=== PATIENT | female | born 1995 | race American Indian/Alaskan Native ===

== ENCOUNTER 2017-06-05 11:59 | Outpatient (CLI) | payer MEDICAID ==
[2017-06-05 13:00] VITALS: BP 126/75
--- NOTE | 2017-06-05 13:49 | Ultrasound Report ---
BIOPHYSICAL PROFILE: INDICATION: well being. Nonreactive nonstress test. COMPARISON: None similar. TECHNIQUE: Transabdominal ultrasound with Doppler interrogation. 2 - breathing movements 2 - movements 2 - posture and tone 2 - Qualitative amniotic fluid volume 8 - TOTAL SCORE OF POSSIBLE 8 Heart Rate (bpm) 160 CONCLUSION: Findings, as above.
--- NOTE | 2017-06-05 13:50 | Ultrasound Report ---
OB LIMITED INDICATION: well being. NRNST. COMPARISON: None similar. TECHNIQUE: Transabdominal grayscale ultrasound with Doppler interrogation. Gestation: Garrett Position: Cephalic Amniotic Fluid: WNL (7-24 cm) SANTI = 9.4 cm Heart Rate: 160 BPM CONCLUSION: Findings, as above.
== END 2017-06-05 13:28 | disposition home or self-care (01) ==
LOC: TRG 11:59
PROVIDERS: ATTEND Obstetrics & Gynecology
DX: Z34.93 Encounter for supervision of normal pregnancy, unspecified, third trimester (principal); Z3A.32 32 weeks gestation of pregnancy
CPT/HCPCS: 59025; 76815; 76819

== ENCOUNTER 2017-06-05 17:38 | Inpatient (IN) | payer MEDICAID ==
[2017-06-05 18:22] LABS: Basophils % (Auto) 0.5 % (0.0-1.8); Eosinophils % (Auto) 0.9 % (0.0-4.3); Hemoglobin 12.9 gm/dl (10.1-14.3); Mean Corpuscular HGB Conc 33 % (30-34); Mean Corpuscular Hemoglobin 27 pg (28-32); Mean Corpuscular Volume 82 fl (79-97); Platelet Count 233 K/mm3 (140-440); Red Blood Count 4.79 M/mm3 (3.65-5.03); Red Cell Distribution Width 14.7 % (13.2-15.2); White Blood Count 9.9 K/mm3 (4.5-11.0)
[2017-06-05] MEDS ORDERED: LACTATED RINGERS 1,000 ML IV SCH (19:00)
[2017-06-05] MEDS ORDERED: PITOCin/NS 20 UNIT/1000ML DRIP 0 MILLIUNITS/0 ML BAG IV ONE (19:43)
[2017-06-05] MEDS ORDERED: ePHEDrine SULFATE ONE (19:43)
[2017-06-05] MEDS ORDERED: NARCAN 2 MG/2 ML IV PRN (20:09)
[2017-06-05] MEDS ORDERED: ePHEDrine SULFATE IV PRN (20:09)
--- NOTE | 2017-06-05 20:09 | Anesthesia Consultation ---
Anesthesia Consult and Med Hx Date of service: 06/05/17 - Airway Anesthetic Teeth Evaluation: Good ROM Head & Neck: Adequate Mental/Hyoid Distance: Adequate Mallampati Class: Class II Intubation Access Assessment: Good - Pulmonary Exam CTA: Yes - Cardiac Exam Cardiac Exam: No Murmur - Pre-Operative Health Status ASA Pre-Surgery Classification: ASA2 Proposed Anesthetic Plan: Epidural - Pulmonary Hx Asthma: Yes COPD: No Hx Pneumonia: No - Cardiovascular System Hx Hypertension: No - Central Nervous System Hx Seizures: No Hx Psychiatric Problems: No - Endocrine Hx Renal Disease: No Hx End Stage Renal Disease: No Hx Hypothyroidism: No Hx Hyperthyroidism: No - Hematic Hx Anemia: No Hx Sickle Cell Disease: No - Other Systems Hx Alcohol Use: No
[2017-06-05] MEDS ORDERED: fentaNYL-BUPIV 2 MCG/ML-0.125% 200 MCG/100 ML BAG EPIDURAL SCH (21:00)
[2017-06-05] MEDS ORDERED: PITOCin/NS 30 UNIT/500ML 30 UNITS/500 ML BAG IV SCH ×2 (21:35→22:30)
[2017-06-05] MEDS ORDERED: XYLOCAINE 2% INFILTRATI ONE (21:40)
--- NOTE | 2017-06-05 22:04 | History and Physical Report ---
History of Present Illness Date of examination: 06/05/17 Date of admission: 06/05/17 18:10 Chief complaint: contractions History of present illness: 21y/o @ 40+1 weeks presents in active labor with advanced cervical dilation of 6cm. She denied leakage of fluid on presentation. Patient is late presentation of care @ 20 weeks ega. course is complicated by SGA +HSV II status but denies any recent prodrome. GBS negative. 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, herpes, trichomonas Social history: single - Obstetrical History : 3 Para: 2 Hx # Term Pregnancies: 2 Number of Pregnancies: 0 Spontaneous Abortions: 0 Induced : 0 Number of Living Children: 2 Medications and Allergies Allergies Allergy/AdvReac Type Severity Reaction Status Date / Time No Known Allergies Allergy Verified 01/27/15 15:21 Home Medications Medication Instructions Recorded Confirmed Last Taken Type No Known Home Medications [No 06/05/17 06/05/17 Unknown History Reported Home Medications] Active Meds: Active Medications Lactated Ringer's (Lactated Ringers) 1,000 mls @ 125 mls/hr IV DIRECT GEOFF Last Admin: 06/05/17 19:52 Dose: 125 mls/hr Fentanyl/Bupivacaine/Sodium Chlor (Fentanyl-Bupiv 2 Mcg/Ml-0.125%) 200 mcg in 100 mls @ 12 mls/hr EPIDURAL TITR GEOFF PRN Reason: Protocol Review of Systems All systems: negative Genitourinary: pelvic pain, contractions - Vital Signs Vital signs: Vital Signs Pulse BP 93 H 119/68 06/05/17 17:56 06/05/17 17:56 Temp Pulse Resp BP Pulse Ox 97.8 F 104 H 18 105/59 100 06/05/17 19:39 06/05/17 22:01 06/05/17 19:39 06/05/17 21:57 06/05/17 22:01 - Physical Exam Breasts: Positive: deferred Cardiovascular: Regular rate Lungs: Positive: Clear to auscultation Abdomen: Positive: normal appearance Results Result Diagrams: 06/05/17 18:00 Abnormal lab results 06/05/17 Range/Units 18:00 MCH 27 L (28-32) pg [place] % (Auto) 8.2 H (0.0-7.3) % All other labs normal. Assessment and Plan - Patient Problems (1) Active labor at term Current Visit: Yes Status: Acute Plan to address problem: admit to L&D (2) SGA (small for gestational age), , affecting care of mother, antepartum Current Visit: Yes Status: Acute Qualifiers: Fetus number: F
[2017-06-05] MEDS ORDERED: PITOCin/NS 20 UNIT/1000ML DRIP 20,000 MILLIUNITS/1,000 ML BAG IV ONE ×2 (22:27→23:48)
[2017-06-05] MEDS ORDERED: PITOCin/NS 30 UNIT/500ML 30,000 MILLIUNITS/500 ML BAG IV ONE (22:28)
[2017-06-05] MEDS ORDERED: DULCOLAX PR PRN (22:54)
[2017-06-05] MEDS ORDERED: ZOFRAN IV PRN (22:54)
[2017-06-05] MEDS ORDERED: PHENERGAN PO PRN (22:54)
[2017-06-05] MEDS ORDERED: TYLENOL PO PRN (22:54)
[2017-06-05] MEDS ORDERED: PHENERGAN PR PRN (22:54)
[2017-06-05] MEDS ORDERED: TUCKS PAD TP PRN (22:54)
[2017-06-05] MEDS ORDERED: BENADRYL PO PRN (22:54)
[2017-06-05] MEDS ORDERED: LANSINOH TP PRN (22:54)
[2017-06-05] MEDS ORDERED: MILK OF MAGNESIA PO PRN (22:54)
--- NOTE | 2017-06-05 22:54 | Procedure Note ---
OB Delivery Note - Delivery Date of Delivery: 06/05/17 Surgeon: DAVID GARCIA Estimated blood loss: other (150ml) - Vaginal Delivery presentation: vertex Delivery position: OA Intrapartum events: none Delivery augmentation: pitocin Delivery monitor: external FHT Route of delivery: Delivery placenta: spontaneous Delivery cord: 3 umbilical vessels Episiotomy: none Delivery laceration: none Anesthesia: epidural Delivery comments: Patient progressed to C/C/+1 and pushed to deliver a liveborn female with apgars of 8/9 weight 8lbs 5oz. After delivery of the head, the shoulders delivered without difficulty. The was bulb suctioned. The cord clamped and cut and the placed on the patient's abdomen. The placenta delivered spontaneously intact with a 3VC. No laceration were noted. EBL 150ml - A at 1 minute: 8 at 5 minutes: 9 Infant Gender: Female (weight 8lbs 5oz)
[2017-06-05] MEDS ORDERED: SODIUM CHLORIDE FLUSH SYRINGE 10 ML IV PRN (23:00)
[2017-06-06] MEDS: NORCO 5/325 PO PRN ×3 (02:01→20:42)
[2017-06-06] MEDS: MOTRIN PO SCH ×3 (06:03→16:46)
--- NOTE | 2017-06-06 08:13 | Progress Note ---
Assessment and Plan - Patient Problems (1) Active labor at term Current Visit: Yes Status: Acute Plan to address problem: Routine care Discharge home tomorrow (2) SGA (small for gestational age), , affecting care of mother, antepartum Current Visit: Yes Status: Acute Qualifiers: Fetus number: F Subjective - Subjective Date of service: 06/06/17 Interval history: The patient is without any significant complaints today. She reports that her pain is well-controlled. The patient tolerated diet without complication. She reports that her lochia is decreasing. Patient reports: appetite normal, voiding normally, pain well controlled [place]: doing well Objective - Vital Signs Latest vital signs: Vital Signs Temp Pulse Resp BP BP Pulse Ox 06/06/17 04:30 98.6 F 66 18 117/71 06/06/17 01:00 98.6 F 71 16 125/68 06/06/17 00:36 86 97 06/06/17 00:32 90 113/57 06/06/17 00:31 90 98 06/06/17 00:26 85 97 06/06/17 00:21 86 97 06/06/17 00:16 81 118/57 96 06/06/17 00:11 79 98 06/06/17 00:06 86 96 06/06/17 00:02 85 110/57 06/06/17 00:01 93 H 98 06/05/17 23:56 85 98 06/05/17 23:51 81 99 06/05/17 23:47 83 118/58 06/05/17 23:46 86 98 06/05/17 23:41 98 H 98 06/05/17 23:36 89 98 06/05/17 23:32 100 H 137/62 06/05/17 23:31 99 H 98 06/05/17 23:26 97 H 98 06/05/17 23:21 101 H 98 06/05/17 23:17 100 H 132/59 06/05/17 23:16 101 H 97 06/05/17 23:11 104 H 98 06/05/17 23:06 101 H 129/78 98 06/05/17 23:04 54 L 89 06/05/17 23:01 107 H 100 06/05/17 22:56 99 H 100 06/05/17 22:51 97 H 100 06/05/17 22:46 119 H 99 06/05/17 22:27 98 H 100 06/05/17 22:22 99 H 100 06/05/17 22:16 92 H 100 06/05/17 22:11 99 H 100 06/05/17 22:06 102 H 100 06/05/17 22:01 104 H 100 06/05/17 21:57 95 H 105/59 06/05/17 21:56 115 H 100 06/05/17 21:51 99 H 100 06/05/17 21:43 85 100 06/05/17 21:38 83 100 06/05/17 21:33 85 100 06/05/17 21:28 89 100 06/05/17 21:23 82 100 06/05/17 21:18 80 98 06/05/17 21:13 83 100 06/05/17 21:08 95 H 98 06/05/17 21:03 75 99 06/05/17 20:58 77 100 06/05/17 20:54 81 132/66 06/05/17 20:53 72 100 06/05/17 20:52 69 130/63 06/05/17 20:50 77 127/66 06/05/17 20:48 76 121/60 99 06/05/17 20:46 95 H 127/63 06/05/17 20:44 74 121/57 06/05/17 20:43 78 100 06/05/17 20:42 80 115/59 06/05/17 20:39 85 122/77 06/05/17 20:38 83 100 06/05/17 20:36 73 125/60 06/05/17 20:34 92 H 134/61 06/05/17 20:33 90 100 06/05/17 20:32 75 131/61 06/05/17 20:30 94 H 141/65 06/05/17 20:29 82 124/61 06/05/17 20:28 81 100 06/05/17 20:27 91 H 153/65 06/05/17 20:24 85 131/73 06/05/17 20:23 105 H 100 06/05/17 20:22 94 H 121/71 06/05/17 20:18 97 H 100 06/05/17 20:13 95 H 100 06/05/17 20:08 87 99 06/05/17 20:03 94 H 99 06/05/17 19:39 97.8 F 18 06/05/17 19:38 71 119/64 06/05/17 18:29 97.5 F L 75 16 136/73 06/05/17 18:19 75 136/73 06/05/17 18:00 98.2 F 18 06/05/17 17:56 93 H 119/68 Intake and Output 06/05/17 06/06/17 06/06/17 22:59 06:59 14:59 Intake Total 300 Output Total 850 Balance -550 Intake: Intake, Free Water 300 Output: Urine 850 Void 850 Other: Total, Output Amount 850 # Voids Void 1 Weight 105.233 kg Estimated Blood Loss 150 - Exam Uterus: Present: normal, firm - Labs Labs: Abnormal lab results 06/05/17 Range/Units 18:00 MCH 27 L (28-32) pg [place] % (Auto) 8.2 H (0.0-7.3) %
--- NOTE | 2017-06-06 08:15 | Discharge Summary ---
Providers - Providers Date of Admission: 06/05/17 18:10 Date of discharge: 06/07/17 Attending physician: DAVID GARCIA Primary care physician: GINNY SALAS Hospitalization Reason for admission: active labor Delivery: Episiotomy: none Laceration: none complications: none Discharge diagnosis: IUP at term delivered [place] baby: female Hospital course: The patient was admitted in active labor with advanced cervical dilatation. The patient has subsequent normal spontaneous vaginal delivery. course was uneventful. Condition at discharge: Good Disposition: DC-01 TO HOME OR SELFCARE - Discharge Diagnoses (1) Active labor at term Status: Acute (2) SGA (small for gestational age), , affecting care of mother, antepartum Status: Acute Qualifiers: Fetus number: F Plan - Discharge Medications Prescriptions: HYDROcodone/ACETAMINOPHEN [[place] 5-325 Tablet] 1 each PO Q6H PRN #30 tablet PRN Reason: Pain Ibuprofen [Motrin] 800 mg PO Q8HR PRN #60 tablet PRN Reason: Pain - Provider Discharge Summary Activity: no sex for 6 weeks, no heavy lifting 4 weeks, no strenuous exercise Diet: routine Instructions: routine Additional instructions: [] Smoking cessation referral if applicable(refer to patient education folder for contact #) [] Refer to [facility] Center Booklet Call your doctor immediately for: * Fever > 100.5 * Heavy vaginal bleeding ( >1 pad per hour) * Severe persistent headache * Shortness of breath * Reddened, hot, painful area to leg or breast * Followup 4 weeks - Follow up plan
[2017-06-06 10:58] LABS: Hematocrit 36.1 % (30.3-42.9); Hemoglobin 11.5 gm/dl (10.1-14.3)
--- NOTE | 2017-06-06 14:18 | Progress Note ---
Subjective Date of service: 06/06/17 Interval history: 1st day after normal vaginal delivery Patient is in the bed, comfortable. Pain is well under control. Ambulated well. No residual neurological deficit. No anesthesia complications Objective - Constitutional Vitals: Vital Signs - 12hr 06/06/17 06/06/17 06/06/17 04:30 08:40 12:00 Temperature 98.6 F 98.2 F 98.6 F Pulse Rate 66 70 75 Respiratory 18 18 18 Rate Blood Pressure 117/71 102/51 128/70 [Right] - Labs CBC & Chem 7: 06/06/17 10:38 Labs: Abnormal lab results 06/05/17 Range/Units 18:00 MCH 27 L (28-32) pg [place] % (Auto) 8.2 H (0.0-7.3) %
[2017-06-07] MEDS: MOTRIN PO SCH ×2 (00:09→05:18)
[2017-06-07] MEDS ORDERED: BOOSTRIX IM ONE (06:00)
[2017-06-07 13:34] VITALS: BP 120/66
== END 2017-06-07 15:45 | disposition home or self-care (01) | DRG 775 ==
LOC: TRG 17:38 → LD 18:10 → OB 06-06 01:27
PROVIDERS: ADMIT Obstetrics & Gynecology; ATTEND Obstetrics & Gynecology
PROC: 10E0XZZ Delivery of Products of Conception, External Approach (ICD-10-PCS; principal; 2017-06-05)
PROC: 3E0R3BZ Introduction of Anesthetic Agent into Spinal Canal, Percutaneous Approach (ICD-10-PCS; 2017-06-05)
PROC: 00HU33Z Insertion of Infusion Device into Spinal Canal, Percutaneous Approach (ICD-10-PCS; 2017-06-05)
PROC: 3E0234Z Introduction of Serum, Toxoid and Vaccine into Muscle, Percutaneous Approach (ICD-10-PCS; 2017-06-07)
DX: O99.52 Diseases of the respiratory system complicating childbirth (principal); Z3A.40 40 weeks gestation of pregnancy; Z37.0 Single live birth; Z23 Encounter for immunization; J45.909 Unspecified asthma, uncomplicated; O36.5930 Maternal care for other known or suspected poor fetal growth, third trimester, not applicable or unspecified
CPT/HCPCS: 36415; 85014; 85018; 85025; 86592; 86850; 86900; 86901; 90471; 90715; 99211; G0463; J2590; J7120

== ENCOUNTER 2017-08-09 06:22 | Day surgery (SDC) | payer MEDICAID ==
--- NOTE | 2017-08-08 13:34 | History and Physical Report ---
History of Present Illness Date of examination: 08/09/17 Chief complaint: undesired fertility History of present illness: Pt is a 21 year old -[place]aced[place] female who presents for surgical sterilization. She is aware of long-acting reversible contraceptives but she desires to proceed. 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: chlamydia, herpes, trichomonas Family/Genetic History: none Social history: no significant social history - Obstetrical History : 3 Para: 3 Medications and Allergies Allergies Allergy/AdvReac Type Severity Reaction Status Date / Time No Known Allergies Allergy Verified 08/07/17 13:28 Home Medications Medication Instructions Recorded Confirmed Last Taken Type No Known Home Medications [No 08/07/17 08/07/17 Unknown History Reported Home Medications] Review of Systems All systems: negative - Physical Exam Breasts: Positive: deferred Cardiovascular: Regular rate Lungs: Positive: Clear to auscultation Abdomen: Positive: soft (obese ) Extremities: Positive: normal Results All other labs normal. Assessment and Plan A: Undesired Fertility Asthma Obesity P: Proceed with laparoscopic bilateral tubal ligation and other indicated procedures.
[~2017-08-09 06:22] MED LIST: ANCEF/STERILE WATER 2 GM/20 ML 2 GM/20 ML SYRINGE IV NR; LACTATED RINGERS 1,000 ML IV SCH; PEPCID PO NR; VERSED IV NR
== END 2017-08-09 06:23 | disposition home or self-care (01) ==
LOC: OR 06:22
PROVIDERS: ATTEND Obstetrics & Gynecology
DX: Z30.2 Encounter for sterilization (principal); Z53.9 Procedure and treatment not carried out, unspecified reason; J45.909 Unspecified asthma, uncomplicated; E66.9 Obesity, unspecified; Z68.33 Body mass index [BMI] 33.0-33.9, adult

== ENCOUNTER 2017-08-16 06:18 | Day surgery (SDC) | payer MEDICAID ==
--- NOTE | 2017-08-15 23:02 | History and Physical Report ---
History of Present Illness Date of examination: 08/16/17 Chief complaint: Undesired Fertility History of present illness: Pt is a 21 year old -[place] female who presents for surgical sterilization. She is aware of long-acting reversible contraceptives but she desires to proceed. 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, herpes, trichomonas Family/Genetic History: none Social history: no significant social history - Obstetrical History : 3 Para: 3 Medications and Allergies Allergies Allergy/AdvReac Type Severity Reaction Status Date / Time No Known Allergies Allergy Verified 08/07/17 13:28 Home Medications Medication Instructions Recorded Confirmed Last Taken Type No Known Home Medications [No 08/07/17 08/14/17 Unknown History Reported Home Medications] Review of Systems All systems: negative - Physical Exam Breasts: Positive: deferred Cardiovascular: Regular rate Lungs: Positive: Clear to auscultation Abdomen: Positive: soft Extremities: Positive: normal Results All other labs normal. Assessment and Plan A: Undesired Fertility Asthma Obesity P: Proceed with laparoscopic bilateral tubal ligation and other indicated procedures.
[~2017-08-16 06:18] MED LIST changes: -PEPCID PO NR; -VERSED IV NR
[2017-08-16] MEDS ORDERED: ZOFRAN IV PRN (07:58)
[2017-08-16] MEDS ORDERED: SUBLIMAZE IV PRN (07:58)
[2017-08-16] MEDS ORDERED: DILAUDID IV PRN (07:58)
[2017-08-16] MEDS ORDERED: PEPCID IV NR (08:00)
--- NOTE | 2017-08-16 08:00 | Anesthesia Consultation ---
Anesthesia Consult and Med Hx Date of service: 08/16/17 - Airway Anesthetic Teeth Evaluation: Good ROM Head & Neck: Adequate Mental/Hyoid Distance: Adequate Mallampati Class: Class II Intubation Access Assessment: Good - Pulmonary Exam CTA: Yes - Cardiac Exam Cardiac Exam: RRR - Pre-Operative Health Status Proposed Anesthetic Plan: General - Pulmonary Hx Smoking: Yes Hx Asthma: Yes (with ) - Central Nervous System Hx Seizures: No Hx Psychiatric Problems: No - Other Systems Hx Alcohol Use: Yes (occas) Hx Cancer: No Hx Obesity: Yes - Additional Comments Anesthesia Medical History Comments: 8 wks post
--- NOTE | 2017-08-16 08:00 | Anesthesia Day of Surgery ---
Anesthesia Day of Surgery - Day of Surgery Patient Examined: Yes Patient H&P Reviewed: Yes Patient is NPO: Yes
[2017-08-16 08:41] LABS: Hematocrit 39.6 % (30.3-42.9); Hemoglobin 12.8 gm/dl (10.1-14.3); Mean Corpuscular HGB Conc 32 % (30-34); Mean Corpuscular Hemoglobin 27 pg (28-32); Mean Corpuscular Volume 83 fl (79-97); Platelet Count 276 K/mm3 (140-440); Red Cell Distribution Width 15.5 % (13.2-15.2)
[2017-08-16] MEDS ORDERED: PROAIR IH ONE (09:12)
[2017-08-16] MEDS ORDERED: MARCAINE 0.5% 30 ML INFILTRATI ONE (09:13)
[2017-08-16] MEDS ORDERED: SUBLIMAZE ONE (09:18)
[2017-08-16] MEDS ORDERED: DIPRIVAN 10 MG/ML IV ONE (09:18)
[2017-08-16] MEDS ORDERED: ZEMURON IV ONE (09:21)
[2017-08-16] MEDS ORDERED: XYLOCAINE MPF 2% ONE (09:21)
[2017-08-16] MEDS ORDERED: DECADRON ONE (09:43)
[2017-08-16] MEDS ORDERED: MARCAINE 0.5% INFILTRATI ONE (10:18)
[2017-08-16] MEDS ORDERED: NACL 0.9% IR ONE (10:18)
[2017-08-16] MEDS ORDERED: ROBINUL ONE (10:30)
[2017-08-16] MEDS ORDERED: ZOFRAN ONE (10:30)
[2017-08-16] MEDS ORDERED: NEOSTIGMINE ONE (10:30)
[2017-08-16] MEDS ORDERED: DEMEROL ONE (10:56)
[2017-08-16] MEDS ORDERED: DEMEROL IV PRN (10:59)
--- NOTE | 2017-08-16 11:00 | Operative Report ---
Operative Report Operative Report: Date of procedure: August 16, 2017 Preoperative diagnosis: Multiparity desires permanent sterilization Postoperative diagnosis: Same Procedure: Laparoscopic bilateral tubal ligation via Filshie clip method Surgeon: Disha Mcneill M.D. Household Worker: Malinda Cutler M.D. Anesthesia: General endotracheal anesthesia Findings: 1) Small anteverted uterus 2) Normal appearing uterus, ovaries and fallopian tubes Estimated blood loss: 10 mL IV fluid: 700 Urine output: 75 mL clear prior to the procedure Specimens: None Complications: None. Counts correct 2 Disposition: Stable to PACU Indications for procedure: Patient is a 21 year old -[place] female who presents for surgical sterilization. She is aware of long-acting reversible contraceptives but she desires to proceed. Operation in detail: After the risks, benefits, alternatives and complications of the procedure were explained to the patient, she gave informed consent for the procedure. She was subsequently taken to the operating room with her IV noted to be running and placed in the dorsal supine position with sequential compression devices functioning. General endotracheal anesthesia was then induced without difficulty. An exam under anesthesia was then performed yielding a small anteverted uterus. The patient was then placed in placement dorsal lithotomy position and prepped and draped in normal sterile fashion. A timeout was then performed. The bladder was then drained of urine yielding 75 mL of clear urine. An open sided speculum was placed into the vagina for visualization of the cervix. A single-tooth tenaculum was placed on the anterior lip of the cervix for traction. A uterine manipulator was then placed. The single-tooth tenaculum and speculum were then removed from the vagina. The surgeon's gloves were then changed. Attention was then turned to entry into the abdominal cavity. A 5 mm infraumbilical incision was made with an 11 blade. The skin was grasped on either side of the umbilicus and tented up. The Veres needle was placed into the peritoneal cavity, confirmed with a saline drop test. The abdomen was then insufflated with CO2 gas to a pressure of 15 mmHg. A 5 mm Visiport trocar was then placed. An anatomic survey was then performed with findings as indicated above. A second trocar site was created 4 cm superior to the pubic symphysis in the midline measuring 8 mm. An 8 mm trocar was then placed under direct visualization. The patient was placed in Trendelenburg position. The uterus was elevated, and two Filshie clips were then placed across each fallopian tube at the level of the ampullae. At this time, all instruments were removed from the abdominal cavity. The pneumoperitoneum was released. The incisions were then infiltrated with quarter percent Marcaine. The incisions were then reapproximated with 4-0 Vicryl in a subcuticular fashion. They were then each covered with Steri-Strips and a tegaderm. All instruments were then removed from the vagina. At this time the procedure was ended. The patient was placed into the dorsal supine position and extubated without difficulty. She was subsequently taken to the PACU in stable condition. All instrument, needle and lap counts were correct 2.
--- NOTE | 2017-08-16 11:02 | Short Stay Summary ---
Short Stay Documentation Date of service: 08/16/17 - History Social history: no significant social history - Allergies and Medications Current Medications: Allergies No Known Allergies Allergy (Verified 08/07/17 13:28) Home Medications Medication Instructions Recorded Confirmed Last Taken Type RX: No Known Home Medications [No 08/07/17 08/14/17 Unknown History Reported Home Medications] Active Medications Famotidine (Pepcid) 20 mg IV PREOP NR Stop: 08/16/17 12:00 Last Admin: 08/16/17 08:42 Dose: 20 mg Fentanyl (Sublimaze) 50 mcg IV Q5MIN PRN PRN Reason: Pain , Severe (7-10) Stop: 08/16/17 13:00 Hydromorphone HCl (Dilaudid) 0.25 mg IV Q10MIN PRN PRN Reason: Pain, Moderate (4-6) Stop: 08/16/17 13:00 Cefazolin Sodium (Ancef/Sterile Water 2 Gm/20 Ml) 2 gm in 20 mls @ 80 mls/hr IV PREOP NR PRN Reason: Protocol Stop: 08/16/17 23:59 Lactated Ringer's (Lactated Ringers) 1,000 mls @ 100 mls/hr IV DIRECT GEOFF Last Admin: 08/16/17 08:42 Dose: 100 mls/hr Meperidine HCl (Demerol) 25 mg IV ONCE PRN PRN Reason: Shivering - Physical exam Breasts: deferred - Brief post op/procedure progress note Date of procedure: 08/16/17 Pre-op diagnosis: Undesired Fertility Post-op diagnosis: same Procedure: Laparoscopic bilateral tubal ligation and other indicated procedures Anesthesia: GETA Findings: 1) Small anteverted uterus 2) Normal appearing uterus, ovaries and fallopian tubes Surgeon: GINNY SALAS Health Economist: DAVID GARCIA Estimated blood loss: minimal Pathology: none Condition: stable - Hospital course Hospital course: Pt tolerated laparoscopic bilateral tubal ligation well. She was observed in the PACU until she met discharge criteria. She will follow up in 2 weeks in the office for an incision check. - Discharge Diagnoses (1) Encounter for sterilization Status: Acute (2) Obesity Status: Acute Qualifiers: Body mass index: BMI 33.0-33.9 Short Stay Discharge Plan Activity: other (Nothing in vagina, no baths for 4 weeks) Weight Bearing Status: Full Weight Bearing Diet: regular Wound: keep clean and dry, remove dressing (on day 2 after surgery ) Follow up with: GINNY SALAS MD [Staff Physician] - 08/30/17 (incision check- please call to schedule appt ) Prescriptions: RX: Ibuprofen 800 mg PO Q8H PRN #30 tablet PRN Reason: Pain oxyCODONE /ACETAMINOPHEN [Percocet 5/325] 1 tab PO Q6HR PRN #30 tablet PRN Reason: Pain
[2017-08-16] MEDS ORDERED: PERCOCET 5/325 PO PRN (11:50)
--- NOTE | 2017-08-16 12:11 | Post Anesthesia Evaluation ---
- Post Anesthesia Evaluation Patient Participated: Yes Airway Patent: Yes Stable Respiratory Function: Yes Nausea/Vomiting: No Temp > 96.8F: Yes Pain Manageable: Yes Adequeate Hydration: Yes Anesthesia Complications: No
[2017-08-16 12:32] VITALS: BP 129/88
== END 2017-08-16 13:00 | disposition home or self-care (01) ==
LOC: OR 06:18
PROVIDERS: ATTEND Obstetrics & Gynecology
DX: Z30.2 Encounter for sterilization (principal); J45.909 Unspecified asthma, uncomplicated; E66.9 Obesity, unspecified; Z68.33 Body mass index [BMI] 33.0-33.9, adult
CPT/HCPCS: 36415; 58671; 81025; 85027; 86850; 86900; 86901; J0690; J1100; J2175; J2405; J2704; J2710; J3010; J7120